=== PATIENT | female | born 1970 | race Caucasian/White ===

== ENCOUNTER → 2016-05-14 | Outpatient (CLI) | payer BC ==
--- NOTE | ~2016-05-14 | CT57 ---
[facility] A Service of [facility] RADIOLOGY TEXT RESULTS PATIENT: ABNER HAJI LOCATION: [facility] : [birth year] UNIT #: [id number] AGE: [address]: Ky Olmos MD SEX: F ORDER DR: [id number] [place] [id number] O MR#: [id number] #: [id number] NAME: ABNER HAJI : 1970 SEX: F STUDY DATE/TIME: 05/14/2016 8:23 UNIT: [facility] ROOM: STUDY DESCRIPTION: CT Chest Wo Cont Attending Physician: Ky Olmos M.D. Referring Physician: Ky Olmos M.D. Ordering Physician: Ky Olmos M.D. Primary Care Physician: Ky Olmos M.D. MEDICAL IMAGING REPORT This report is preliminary unless electronic signature is present. EXAM CT of the chest without contrast. INDICATION 45-year-old female with shortness of breath. Abnormal chest x-ray last Tuesday. Pleural effusion. Sporadic chest pain. TECHNIQUE CT of the chest was performed without contrast. Coronal and sagittal reformatted images were obtained. This CT exam was performed with one or more of the following radiation dose reduction techniques: automatic exposure control, adjustment of mA and/or kV according to patient size, and iterative reconstruction. COMPARISON STUDIES Comparison with chest x-ray from 05/07/2016. FINDINGS There is a micronodule in the right middle lobe on image 51. There is no evidence of airspace consolidation. There is no evidence of lymphadenopathy or pleural effusion. Limited imaging of the upper abdomen is unremarkable. The bone windows are unremarkable. IMPRESSION 1. There is a tiny right middle lobe micronodule. If the patient has no risk factors for malignancy, then this does not need followup. If the patient has risk factors for lung malignancy such as a smoking history, then this should be followed up in 1 year to document stability. 2. The remainder of the study is negative. [facility] A Service [facility] RADIOLOGY TEXT RESULTS PATIENT: ABNER HAJI LOCATION: [facility] : 66 UNIT #: [id number] AGE: [address]: Ky Olmos MD SEX: F ORDER DR: Dictated by... Lars Gray M.D. THIS IS AN ELECTRONICALLY VERIFIED REPORT Lars Gray M.D. at 05/14/2016 5:03 PM WILLIAM/stephanie TD: 05/14/2016 11:56 JOB #: [id number] MEDICAL IMAGING REPORT Page 1 of 1
== END | disposition home or self-care (01) ==
LOC: SCT 08:13
DX: J90 Pleural effusion, not elsewhere classified (principal); M06.9 Rheumatoid arthritis, unspecified; R91.1 Solitary pulmonary nodule
CPT/HCPCS: 71250